=== PATIENT | male | born 1980 | race Caucasian/White ===

== ENCOUNTER 2020-03-28 11:31 | Emergency (ER) | payer OTHER ==
[2020-03-28 12:02] VITALS: BP 127/75; PULSE 82; TEMP 97.6; BMI 31.8
== END 2020-03-28 12:15 | disposition home or self-care (01) ==
LOC: JERFT 11:31 → JER 11:31 → JERFT 12:15
DX: H92.01 Otalgia, right ear (principal); R05 Cough
CPT/HCPCS: 71046-TC-FY; 99283-25; C9803; U0003